=== PATIENT | female | born 1985 | race Caucasian/White ===

== ENCOUNTER 2021-03-26 10:46 | Emergency (ER) | payer OTHER ==
[~2021-03-26] VITALS: Ht 167.6 cm; Wt 70.3 kg
[~2021-03-26 10:46] MED LIST: ACCUNEB SO1.25 MG/1 INH; FLEXERIL PO; MEDROLDOSEPACK PO; NORCO 5-325 TA1 EACH PO; PAXIL10 MG
[2021-03-26] MEDS ORDERED: BENTYL 10 MG CA10 MG PO (10:59)
[2021-03-26] MEDS ORDERED: NEURONTIN100 MG PO (10:59)
[2021-03-26] MEDS ORDERED: CYMBALTA20 MG PO (10:59)
[2021-03-26] MEDS ORDERED: TIZANIDINE HCL2 M1 PO (10:59)
[2021-03-26] MEDS ORDERED: TROKENDI XR50 MG PO (11:00)
[2021-03-26] MEDS ORDERED: BUSPAR30 MG PO (11:00)
[2021-03-26] MEDS ORDERED: SPIRONOLACTONE100 M1 PO (11:00)
[2021-03-26] MEDS ORDERED: GABAPENTIN 100100 MG PO (11:15)
[2021-03-26] MEDS ORDERED: IBUPROFEN 800800 M1 PO (11:29)
[2021-03-26] MEDS ORDERED: HYDROCODON-ACE1 EAC7 PO (11:33)
[2021-03-26 11:53] LABS: ABSOLUTE BASOPHILS 0.1 thou/uL (0.0-0.2); ABSOLUTE EOSINOPHILS 0.4 thou/uL (0.0-0.7); ABSOLUTE MONOCYTES 0.7 thou/uL (0.0-1.2); ABSOLUTE NEUTROPHILS 5.2 thou/uL (1.6-8.1); BASOPHILS 1.1 %; EOSINOPHILS 4.3 %; HEMATOCRIT 40.4 % (37.0-47.0); HEMOGLOBIN 13.7 gm/dL (12.0-15.0); LYMPHOCYTES 24.1 %; MCH 29.5 pg (26.0-34.0); MCV 86.7 fL (80.0-100.0); MONOCYTES 8.8 %; MPV 7.3 fl. (7.2-11.1); NUCLEATED RBCS 0 /100WBC; PLATELET COUNT* 303 thou/uL (150-400); POLYS 61.7 %; RBC 4.66 mil/uL (4.20-5.00); RDW-CV 12.8 % (10.5-14.5); WBC 8.4 thou/uL (4.0-11.0)
[2021-03-26 12:03] LABS: POTASSIUM 4.1 mmol/L (3.5-5.1)
[2021-03-26 12:12] LABS: ALBUMIN 3.8 g/dL (3.4-5.0); TOTAL BILIRUBIN 0.5 mg/dL (<0.1-1.0); TOTAL PROTEIN 7.2 g/dL (6.4-8.2)
[2021-03-26 12:24] VITALS: BP 142/85
== END 2021-03-26 12:24 | disposition home or self-care (01) ==
LOC: M.ERS 10:46
PROVIDERS: Nurse Practitioner Family
DX: M79.2 Neuralgia and neuritis, unspecified (principal); R20.2 Paresthesia of skin; R94.5 Abnormal results of liver function studies; J44.9 Chronic obstructive pulmonary disease, unspecified; Z90.711 Acquired absence of uterus with remaining cervical stump; Z98.51 Tubal ligation status; Z79.899 Other long term (current) drug therapy; Z88.2 Allergy status to sulfonamides